=== PATIENT | male | born 1970 | race Caucasian/White ===

== ENCOUNTER 2022-09-03 13:17 | Emergency (ER) | payer SELFPAY ==
[2022-09-03 13:18] VITALS: PULSE 77; RESP 14; TEMP 36.4; O2SAT 99
== END 2022-09-03 13:30 | disposition left against medical advice (07) ==
LOC: ED 13:37
DX: Z53.21 Procedure and treatment not carried out due to patient leaving prior to being seen by health care provider (principal)

== ENCOUNTER 2023-12-20 15:44 | Emergency (ER) | payer OTHER, SELFPAY ==
[2023-12-20] VITALS (26 sets, daily range): BP systolic 93–142; BP diastolic 56–88; PULSE 55–771; RESP 11–58; TEMP 36.4–36.9; O2SAT 85–100; BMI 25.4
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
[2023-12-20] MEDS: fentaNYL 100 MCG/2 ML Ampul 50 MCG IV ×2 (16:20→17:19)
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
--- NOTE | 2023-12-20 16:25 | NURSING ---
NO OLD EKGS
[2023-12-20 16:26] LABS: Absolute Neutrophil Count 6.1 X10^3/uL (2.0-7.7); Basophil# 0.06 X10^3/uL; Basophil% 0.6 % (0-1); Eosinophil# 0.37 X10^3/uL; Eosinophils% 3.8 % (0-5); Hematocrit 44.1 % (40-54); Hemoglobin 14.3 g/dL (13.0-16.5); Lymphocyte % 27.4 % (19-41); Mean Corp Hgb Conc 32.4 g/dL (32-36); Mean Corpuscular Hgb 29.3 pg (27.0-32.0); Mean Corpuscular Volume 90.4 fL (80-94); Mean Platelet Vol. 10.3 fl (6.2-12.0); Monocyte# 0.58 X10^3/uL; Monocyte% 5.9 % (0-10); NRBC Flagged by Analyzer 0 % (0-5); Neutrophil # 6.09 X10^3/uL (2.7-7.7); Neutrophil % 61.9 % (47-70); Platelet Count 376 K/mm3 (150-450); RBC Distribution Width CV 13.7 % (11.6-14.6); RBC Distribution Width SD 45.1 fl (35.1-43.9); Red Blood Count 4.88 M/mm3 (4.6-6.2); White Blood Count 9.8 K/mm3 (4.4-11.0)
[2023-12-20] MEDS: Ondansetron 4 MG/2 ML Vial IV (16:27)
[2023-12-20] MEDS: 0.9% Normal Saline (1000mL) 1,000 ML 999 ML IV (16:27)
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
[2023-12-20 16:35] LABS: Prothrombin Time (Protime)PT. 13.3 SECONDS (11.7-14.9)
[2023-12-20 16:45] LABS: ALB/GLOB Ratio 1.2 RATIO (0.9-2.4); AST(SGOT) 34 U/L (15-37); Alanine Aminotransfer ALT/SGPT 51 U/L (16-61); Albumin, Serum 4.1 g/dL (3.2-5.0); Alkaline Phosphatase 75 U/L (45-117); Anion Gap 8 (5-15); BUN 16 mg/dL (7-18); BUN/Creat Ratio 10.8 RATIO (10-20); Calcium,Total 9.6 mg/dL (8.5-10.1); Chloride 105 mmol/L (98-107); Creatinine, Serum 1.48 mg/dL (0.70-1.30); EST Glomerular Filtration Rate 52 mL/min (>60); Est Glom Filt Rate - Afr Amer 64 mL/min (>60); Globulin 3.4 g/dL (2.2-4.2); Glucose 144 mg/dL (74-106); Potassium 3.6 mmol/L (3.5-5.1); Protein, Total 7.5 g/dL (6.4-8.2); Sodium Level 139 mmol/L (136-145); Troponin-I HS 63 pg/mL (3.0-78.0)
--- NOTE | 2023-12-20 17:06 | NURSING ---
CALLED [facility] TRANSFER LINE,
--- NOTE | 2023-12-20 17:06 | NURSING ---
DR GAGNON TALKING TO [facility]OM DOCTOR
[2023-12-20] MEDS: Propofol 200 MG/20 ML Vial IV BOLUS (17:37)
--- NOTE | 2023-12-20 17:50 | NURSING ---
CALLED [facility], ETA 2 HRS
--- NOTE | 2023-12-20 18:00 | RAD_ITS ---
STUDY: X-RAY CHEST REASON FOR EXAM: Male, 53 years old. CHEST PAIN CHEST TUBE PLACEMENT TECHNIQUE: XR Chest 1 View COMPARISON: Study done earlier today. FINDINGS: Left chest tube in place. Left chest subcutaneous emphysema. No mediastinal shift. There is no pneumothorax. Elevation of left hemidiaphragm. Normal size heart. Normal mediastinum and [place]. Normal visualized pulmonary arteries. Normal visualized aortic arch and descending thoracic aorta. Normal visualized thoracic spine. Normal visualized ribs, clavicles, and shoulders. There are no acute findings of the upper abdomen. RAD/Chest 1 View (Portable) IMPRESSION: Left chest tube in place. Left chest subcutaneous emphysema. No mediastinal shift. Electronically Signed: Edis Key MD at 18:42 EDT ,
[2023-12-20] MEDS: Morphine 4 MG/ML Syringe IV (18:08)
--- NOTE | 2023-12-20 18:17 | ED.RN ---
This RN was unable to obtain all vitals during procedural sedation due to patient needing propofol frequently and the blood pressure cuff is on the same arm as the IV. This RN is charting the vitals I was able to obtain.
[2023-12-20] MEDS: HYDROmorphone 1 MG/ML Syringe IV ×3 (18:19→20:40)
== END 2023-12-20 20:53 | disposition other institution (70) ==
PROVIDERS: Nurse Practitioner; Emergency Provider Emergency Medicine; PCP Family Medicine; Visit Provider Emergency Medicine
DX: S22.42XA Multiple fractures of ribs, left side, initial encounter for closed fracture (principal); I50.9 Heart failure, unspecified; I25.10 Atherosclerotic heart disease of native coronary artery without angina pectoris; I25.2 Old myocardial infarction; J18.9 Pneumonia, unspecified organism; Z79.82 Long term (current) use of aspirin; Z79.899 Other long term (current) drug therapy; Z95.5 Presence of coronary angioplasty implant and graft; V18.4XXA Pedal cycle driver injured in noncollision transport accident in traffic accident, initial encounter
CPT/HCPCS: 32551; 71045; 71260; 74177; 80053; 84484; 85025; 85610; 86850; 86900; 86901; 93005; 96361; 96374; 96375; 96376; 99152; 99285; Q9967; J2405